=== PATIENT | male | born 1985 | race Hispanic/Latino ===

== ENCOUNTER 2019-01-21 20:57 | Emergency (ER) | payer BC, SELFPAY ==
[2019-01-21 21:48] LABS: Absolute Lymphocytes (CBC) 2.1 K/uL (0.7-4.9); Basophils % 0.5 % (0-1.3); Hematocrit 39.3 % (39.6-49.0); Lymphocytes % 25.5 % (15.3-44.8); MPV 7.2 fL (7.6-11.3); RBC Red Blood Cell Count 4.24 M/uL (4.33-5.43)
[2019-01-21 22:03] LABS: ALT/SGPT 18 U/L (12-78); AST/SGOT 19 U/L (15-37); Albumin 3.6 g/dL (3.4-5.0); Alkaline Phosphatase 49 U/L (45-117); BUN Blood Urea Nitrogen 20 mg/dL (7-18); Bicarbonate 31 mmol/L (21-32); Bilirubin Direct < 0.1 mg/dL (0-0.2); Bilirubin Total 0.2 mg/dL (0.2-1.0); Glucose Level 80 mg/dL (74-106); Lipase 108 U/L (73-393); Magnesium 2.3 mg/dL (1.8-2.4); Potassium 3.9 mmol/L (3.5-5.1); Sodium Level 143 mmol/L (136-145)
[2019-01-21 23:36] LABS: Urine Blood NEGATIVE (NEG); Urine Glucose NEGATIVE (NEG); Urine Protein NEGATIVE (NEG); Urine Specific Gravity 1.025 (1.005-1.030)
[2019-01-21 23:45] LABS: Barbiturates NEGATIVE (NEGATIVE); Benzodiazepines NEGATIVE (NEGATIVE); Cocaine NEGATIVE (NEGATIVE); METHAMPHETAM NEGATIVE (NEGATIVE); Methadone NEGATIVE (NEGATIVE); Opiates NEGATIVE (NEGATIVE); Phencyclidine NEGATIVE (NEGATIVE); THC Cannibis POSITIVE (NEGATIVE)
--- NOTE | 2019-01-22 00:18 | ER ---
Nurse's Notes [facility] Name: Osiel Hill Jr Age: 34 yrs Sex: Male : 1985 Arrival Date: 01/21/2019 Time: 21:04 Bed 28 Private MD: Diagnosis: Epileptic seizures related to external causes, not intractable, without status epilepticus;Cannabis abuse Presentation: 01/21 21:09 Presenting complaint: EMS states: pt reportedly had a seizure this morning at 0700 aa1 while sitting in his car and then had another episode that was witnessed by his mother at approx 2040 this evening. Denies incontinence. Denies hx of seizures. Denies hx of drug use or synthetic marijuana. Upon arrival to ED pt A\T\O x 4 with no complaints. Transition of care: patient was not received from another setting of care. Onset of symptoms was January 21, 2019 at 07:00. Risk Assessment: Do you want to hurt yourself or someone else?. Initial Sepsis Screen: Does the patient meet any 2 criteria? HR > 90 bpm. Does the patient have a suspected source of infection? No. Patient's initial sepsis screen is negative. Care prior to arrival: None. 21:09 Method Of Arrival: EMS: [facility] aa1 21:09 Acuity: DENIS 3 aa1 Triage Assessment: 21:30 General: Appears comfortable. tr5 Historical: - Allergies: 21:13 No Known Allergies; aa1 - Home Meds: 21:13 None [Active]; aa1 - PMHx: 21:13 None; aa1 - PSHx: 21:13 None; aa1 - Immunization history:: Adult Immunizations unknown. - Social history:: Smoking status: Patient/guardian denies using tobacco, Patient uses alcohol, only on a social basis. Patient/guardian denies using street drugs, IV drugs. - Ebola Screening: : No symptoms or risks identified at this time. Screenin:30 Abuse screen: Denies threats or abuse. Nutritional screening: No deficits noted. tr5 Tuberculosis screening: No symptoms or risk factors identified. Fall Risk None identified. Assessment: 21:30 General: Behavior is calm, cooperative. Pain: Denies pain. Neuro: Level of tr5 Consciousness is awake, alert, Oriented to. 22:30 Reassessment: Patient appears in no apparent distress at this time. Patient and/or tr5 family updated on plan of care and expected duration. Pain level reassessed. Patient is alert, oriented x 3, equal unlabored respirations, skin warm/dry/pink. Vital Signs: 21:13 BP 131 / 69; Pulse 99; Resp 14; Temp 98.4; Pulse Ox 98% on R/A; Weight 63.5 kg; Height aa1 5 ft. 7 in. (170.18 cm); Pain 0/10; 01/22 00:00 BP 109 / 67; Pulse 81; Resp 13; Pulse Ox 97% on R/A; tr5 01/21 21:13 Body Mass Index 21.93 (63.50 kg, 170.18 cm) aa1 Katia Coma Score: 01/21 21:13 Eye Response: spontaneous(4). Verbal Response: oriented(5). Motor Response: obeys aa1 commands(6). Total: 15. ED Course: 21:04 Patient arrived in ED. cf2 21:04 Patient has correct armband on for positive identification. Placed in gown. Bed in low aa1 position. Call light in reach. ekg monitor tech on. Pulse ox on. NIBP on. 21:10 Mohan Monahan MD is Attending Physician. tw4 21:12 Triage completed. aa1 21:13 Arm band placed on left wrist. aa1 21:18 Onesimo Murillo, RN is Primary Nurse. tr5 21:30 Seizure precautions initiated. tr5 21:31 CT Head Brain wo Cont In Process Unspecified. EDMS 21:46 Initial lab(s) drawn, by ga, sent to lab. Inserted saline lock: 20 gauge in left tr5 antecubital area, using aseptic technique. 01/22 00:18 Javier Almendarez MD is Referral Physician. tw4 00:25 No provider procedures requiring assistance completed. IV discontinued. tr5 Administered Medications: No medications were administered Outcome: 00:17 Discharge ordered by . tw4 00:25 Discharged to home ambulatory, with family. tr5 00:25 Condition: stable 00:25 Discharge instructions given to patient, family, Instructed on discharge instructions, follow up and referral plans. 00:26 Patient left the ED. tr5 Signatures: Dispatcher [employer] [facility] Lauren Ross RN RN aa1 Mohan Monahan MD MD tw4 Onesimo Murillo, RN RN tr5 Gretchen Kramer 2
--- NOTE | 2019-01-22 00:19 | EDPHYS ---
Physician Documentation [facility] Name: Osiel Hill Jr Age: 34 yrs Sex: Male : 1985 Arrival Date: 01/21/2019 Time: 21:04 Bed 28 Private MD: ED Physician Mohan Monahan HPI: 01/22 06:48 This 34 yrs old Male presents to ER via EMS with complaints of Seizure. tw4 06:48 The patient presents with a history of multiple seizures, a total of 2. Character of tw4 seizure(s): Loss of consciousness: it is not known if the patient experienced loss of consciousness, Motor activity: generalized, Incontinence: none, Apnea: it is not know whether or not the patient experienced apnea, Circulation: it is unknown whether or not the patient experienced a disturbance in pulse, Eye movements: are unknown. Seizure onset: this morning. Context: the seizure(s) was witnessed, by family, mother. Seizure Hx: the patient has no previous seizure history. The patient has not experienced similar symptoms in the past. Historical: - Allergies: 01/21 21:13 No Known Allergies; aa1 - Home Meds: 21:13 None [Active]; aa1 - PMHx: 21:13 None; aa1 - PSHx: 21:13 None; aa1 - Immunization history:: Adult Immunizations unknown. - Social history:: Smoking status: Patient/guardian denies using tobacco, Patient uses alcohol, only on a social basis. Patient/guardian denies using street drugs, IV drugs. - Ebola Screening: : No symptoms or risks identified at this time. ROS: 01/22 06:48 Constitutional: Negative for fever, chills, and weight loss, Eyes: Negative for injury, tw4 pain, redness, and discharge, Cardiovascular: Negative for chest pain, palpitations, and edema, Respiratory: Negative for shortness of breath, cough, wheezing, and pleuritic chest pain, Abdomen/GI: Negative for abdominal pain, nausea, vomiting, diarrhea, and constipation, Back: Negative for injury and pain, MS/Extremity: Negative for injury and deformity, Skin: Negative for injury, rash, and discoloration. Neuro: Positive for seizure activity, Negative for altered mental status, dizziness, gait disturbance, headache, hearing loss, loss of consciousness, numbness, speech changes, syncope, near syncope, tingling, tinnitus, tremor. Exam: 06:48 Constitutional: This is a well developed, well nourished patient who is awake, alert, tw4 and in no acute distress. Head/Face: Normocephalic, atraumatic. Chest/axilla: Normal chest wall appearance and motion. Nontender with no deformity. No lesions are appreciated. Cardiovascular: Regular rate and rhythm with a normal S1 and S2. No gallops, murmurs, or rubs. Normal PMI, no JVD. No pulse deficits. Respiratory: Lungs have equal breath sounds bilaterally, clear to auscultation and percussion. No rales, rhonchi or wheezes noted. No increased work of breathing, no retractions or nasal flaring. Abdomen/GI: Soft, non-tender, with normal bowel sounds. No distension or tympany. No guarding or rebound. No evidence of tenderness throughout. Back: No spinal tenderness. No costovertebral tenderness. Full range of motion. MS/ Extremity: Pulses equal, no cyanosis. Neurovascular intact. Full, normal range of motion. Neuro: Awake and alert, GCS 15, oriented to person, place, time, and situation. Cranial nerves II-XII grossly intact. Motor strength 5/5 in all extremities. Sensory grossly intact. Cerebellar exam normal. Normal gait. Vital Signs: 01/21 21:13 BP 131 / 69; Pulse 99; Resp 14; Temp 98.4; Pulse Ox 98% on R/A; Weight 63.5 kg; Height aa1 5 ft. 7 in. (170.18 cm); Pain 0/10; 01/22 00:00 BP 109 / 67; Pulse 81; Resp 13; Pulse Ox 97% on R/A; tr5 01/21 21:13 Body Mass Index 21.93 (63.50 kg, 170.18 cm) aa1 [place] Coma Score: 01/21 21:13 Eye Response: spontaneous(4). Verbal Response: oriented(5). Motor Response: obeys aa1 commands(6). Total: 15. MDM: 21:10 Patient medically screened. tw4 01/22 06:48 Differential diagnosis: drug overdose, seizure. Data reviewed: vital signs, nurses tw4 notes, lab test result(s), CBC, white blood cell count, hemoglobin, hematocrit, platelets, electrolytes, sodium, potassium, chloride, serum bicarbonate, BUN, creatinine, serum glucose, hepatic panel, urine drug screen, EKG. Data interpreted: night monitor: rhythm is normal sinus rhythm, Pulse oximetry: Interpretation: normal. Counseling: I had a detailed discussion with the patient and/or guardian regarding: the historical points, exam findings, and any diagnostic results supporting the discharge/admit diagnosis, lab results, radiology results. Special discussion: I discussed with the patient/guardian in detail that at this point there is no indication for admission to the hospital. It is understood, however, that if the symptoms persist or worsen the patient needs to return immediately for re-evaluation. 01/21 21:12 Order name: UDS; Complete Time: 23:48 [facility] 01/21 23:48 Interpretation: Normal except: THC POSITIVE. [facility] 01/21 21:12 Order name: Basic Metabolic Panel; Complete Time: 22:55 [facility] 01/21 22:55 Interpretation: Normal except: CL 108; BUN 20. [facility] 01/21 21:12 Order name: CBC with Diff; Complete Time: 22:55 [facility] 01/21 22:55 Interpretation: Normal except: RBC 4.24; HGB 13.2; HCT 39.3; MPV 7.2. [facility] 01/21 21:12 Order name: Hepatic Function; Complete Time: 22:55 [facility] 01/21 22:55 Interpretation: Within normal limits. [facility] 01/21 21:12 Order name: Lipase; Complete Time: 22:55 [facility] 01/21 22:55 Interpretation: Within normal limits: LIP 108. [facility] 01/21 21:12 Order name: Magnesium; Complete Time: 22:55 [facility] 01/21 22:55 Interpretation: Within normal limits: MG 2.3. 01/21 21:12 Order name: CT Head Brain wo Cont [facility] 01/21 21:12 Order name: EKG; Complete Time: 21:13 [facility] 01/21 21:12 Order name: Cardiac monitoring; Complete Time: 22:25 [facility] 01/21 21:12 Order name: EKG - Nurse/Tech; Complete Time: 21:53 [facility] 01/21 21:12 Order name: IV Saline Lock; Complete Time: 21:41 [facility] 01/21 21:12 Order name: Labs collected and sent; Complete Time: 21:42 tw4 01/21 21:12 Order name: NPO; Complete Time: 21:42 tw4 01/21 23:24 Order name: Urine Dipstick--Ancillary (enter results) mw2 01/21 21:12 Order name: O2 Per Protocol; Complete Time: 21:42 tw4 01/21 21:12 Order name: O2 Sat Monitoring; Complete Time: 21:41 tw4 01/21 21:12 Order name: Urine Dipstick-Ancillary (obtain specimen); Complete Time: 23:22 tw4 EC:54 Rate is 86 beats/min. Rhythm is regular. QRS [place] is Normal. [place] interval is normal. QRS tw4 interval is normal. QT interval is normal. Q waves are Present in leads II, III, aVF. Q waves are Old. T waves are Normal. Clinical impression: NSR w/ Non-specific ST/T Changes. Interpreted by me. Reviewed by me. Administered Medications: No medications were administered Disposition: 01/22/19 00:17 Discharged to Home. Impression: Epileptic seizures related to external causes, not intractable, without status epilepticus, Cannabis abuse. - Condition is Stable. - Discharge Instructions: Nonepileptic Seizures, Seizure, Adult. - Prescriptions for Keppra 500 mg Oral Tablet - take 1 tablet by ORAL route every 12 hours; 20 tablet. - Medication Reconciliation Form, Thank You Letter, Antibiotic Education, Prescription Opioid Use form. - Follow up: Private Physician; When: Upon discharge from the Emergency Department; Reason: Recheck today's complaints, Continuance of care. Follow up: Javier Almendarez MD; When: Upon discharge from the Emergency Department; Reason: Recheck today's complaints, Continuance of care. - Problem is new. - Symptoms have improved. Signatures: Dispatcher [employer] Lauren Peterson RN RN aa1 Mohan Monahan MD MD tw4 Onesimo Murilol RN RN tr5 Corrections: (The following items were deleted from the chart) 00:18 00:17 01/22/2019 00:17 Discharged to Home. Impression: Epileptic seizures related to tw4 external causes, not intractable, without status epilepticus; Cannabis abuse. Condition is Stable. Forms are Medication Reconciliation Form, Thank You Letter, Antibiotic Education, Prescription Opioid Use. Follow up: Private Physician; When: Upon discharge from the Emergency Department; Reason: Recheck today's complaints, Continuance of care. Problem is new. Symptoms have improved. tw4 00:26 00:18 01/22/2019 00:17 Discharged to Home. Impression: Epileptic seizures related to tr5 external causes, not intractable, without status epilepticus; Cannabis abuse. Condition is Stable. Discharge Instructions: Nonepileptic Seizures, Seizure, Adult. Forms are Medication Reconciliation Form, Thank You Letter, Antibiotic Education, Prescription Opioid Use. Follow up: Private Physician; When: Upon discharge from the Emergency Department; Reason: Recheck today's complaints, Continuance of care. Follow up: Javier Almendarez; When: Upon discharge from the Emergency Department; Reason: Recheck today's complaints, Continuance of care. Problem is new. Symptoms have improved. tw4
[2019-01-22 01:36] VITALS: TEMP 98.4
[2019-01-22 01:37] VITALS: BP 109/67; O2SAT 97
--- NOTE | 2019-01-22 09:27 | EKG ---
Test Date: 2019-01-21 Test Time: 21:51:52 Administrative Representative: MARINET MEASUREMENT RESULTS: Intervals: Rate: 86 NE: 152 QRSD: 112 QT: 338 QTc: 404 [place]: P: 68 NE: 152 QRS: 5 T: 54 INTERPRETIVE STATEMENTS: Normal sinus rhythm Incomplete right bundle branch block Indeterminate axis Borderline ECG No previous ECG available for comparison Electronically Signed On 01-22-19 09:27:17 CRISIS THERAPIST by Khanh Martinez
--- NOTE | 2019-01-22 11:39 | RAD REPORT ---
EXAM DESCRIPTION: CT - Head Brain Wo Cont - 01/22/2019 3:42 am CLINICAL HISTORY: Seizure. COMPARISON: None. TECHNIQUE: CT scan of the brain without IV contrast. This exam was performed according to our depa rtmental dose-optimization program, which includes automated exposure control, adjustment of the mA a nd/or kV according to patient size and/or use of iterative reconstruction technique. FINDINGS: The ventricles, cisterns, and sulci are age-appropriate. No evidence of acute infarction, intracranial hemorrhage, extra-axial fluid collection, or midline shift. No air-fluid levels are seen in the paranasal sinuses to suggest acute sinusitis. No depressed skull fracture. IMPRESSION: No acute intracranial findings. Electronically signed by: Javier Cook MD 01/21/2019 9:53 PM BICYCLE FITTER Due to temporary technical issues with the PACS/Fluency reporting system, reports are being signed by the in house radiologist as a courtesy to ensure prompt reporting. The interpreting radiologist is f ully responsible for the content of the report.
== END 2019-01-22 00:26 | disposition home or self-care (01) ==
LOC: ER 20:57
DX: F12.10 Cannabis abuse, uncomplicated (principal)
CPT/HCPCS: 36415; 70450; 80048; 80076; 80307; 81003; 83690; 83735; 85025; 93005; 99284

== ENCOUNTER 2020-03-03 09:55 | Emergency (ER) | payer SELFPAY ==
[2020-03-03 10:31] LABS: Absolute Lymphocytes (CBC) 1.7 K/uL (0.7-4.9); Basophils % 0.3 % (0-1.3); Hematocrit 35.8 % (39.6-49.0); Lymphocytes % 14.6 % (15.3-44.8); MPV 7.8 fL (7.6-11.3); RBC Red Blood Cell Count 3.96 M/uL (4.33-5.43)
[2020-03-03 10:54] LABS: ALT/SGPT 31 U/L (12-78); AST/SGOT 26 U/L (15-37); Albumin 3.5 g/dL (3.4-5.0); Alkaline Phosphatase 64 U/L (45-117); BUN Blood Urea Nitrogen 18 mg/dL (7-18); Bicarbonate 30 mmol/L (21-32); Bilirubin Direct < 0.1 mg/dL (0-0.2); Bilirubin Total 0.2 mg/dL (0.2-1.0); Creatine Phosphokinase 922 U/L (39-308); Glucose Level 130 mg/dL (74-106); Protein, Total 6.7 g/dL (6.4-8.2); Sodium Level 141 mmol/L (136-145)
[2020-03-03] MEDS ORDERED: NA CHLORIDE 0.9% 1,000 ML ONE (12:10)
--- NOTE | 2020-03-03 12:37 | ER ---
Nurse's Notes [facility] Name: Osiel Hill Jr Age: 35 yrs Sex: Male : 1985 Arrival Date: 03/03/2020 Time: 09:56 Bed 16 Private MD: Diagnosis: Exposure to excessive natural cold;Hypothermia;Dehydration Presentation: 03/03 09:56 Chief complaint: EMS states: found unresponsive outside of apartment complex in [address] EMS reports pt was A\\T\\O x 0 upon their arrival. Pt currently is drowsy but A\\T\\O x 4, pt not willing to speak about incident, pt just states "I took a pill". Pt's jeans noted to be wet, pt refuses to get into gown and take off wet clothes. Coronavirus screen: Client denies travel out of the [place] in the last 14 days. At this time, the client does not indicate any symptoms associated with coronavirus-19. Ebola Screen: Patient negative for fever greater than or equal to 101.5 degrees Fahrenheit, and additional compatible Ebola Virus Disease symptoms. Initial Sepsis Screen: Does the patient meet any 2 criteria? Temp <36.0*C (96.8*F)) or > 38.3*C (100.9*F). HR > 90 bpm. Yes Does the patient have a suspected source of infection? No. Patient's initial sepsis screen is negative. Risk Assessment: Do you want to hurt yourself or someone else? Patient reports no desire to harm self or others. Onset of symptoms was March 03, 2020. 09:56 Acuity: DENIS 3 aa5 09:56 Method Of Arrival: EMS: [facility] aa5 09:56 Care prior to arrival: IV initiated. 18 GA, in the left antecubital area, Glucose aa5 check: 88 Oxygen administered. via nasal cannula. Historical: - Allergies: 10:00 No Known Allergies; aa5 - PMHx: 10:00 None; aa5 - PSHx: 10:00 None; aa5 - Immunization history:: Adult Immunizations unknown. - Social history:: Smoking status: unknown. Screenin:14 Abuse screen: Denies threats or abuse. Nutritional screening: No deficits noted. aa5 Tuberculosis screening: No symptoms or risk factors identified. Fall Risk IV access (20 points). Total Childs Fall Scale indicates No Risk (0-24 pts). Assessment: 10:00 General: Appears comfortable, Behavior is calm, cooperative, drowsy. Pain: Denies pain. aa5 Neuro: Level of Consciousness is alert, obeys commands, drowsy and sleepy . Oriented to person, place, time, situation, Appropriate for age Pupils are PERRLA, dilated. Cardiovascular: Heart tones S1 S2 present Rhythm is regular. Respiratory: Airway is patent Respiratory effort is even, unlabored, Respiratory pattern is regular, symmetrical. GI: Abdomen is flat, non-distended, Bowel sounds present X 4 quads. Abd is soft and non tender X 4 quads. : No signs and/or symptoms were reported regarding the genitourinary system. EENT: No signs and/or symptoms were reported regarding the EENT system. Derm: Skin is pink, warm \\T\\ dry. Musculoskeletal: Range of motion: intact in all extremities. 10:00 Reassessment: Nacho hugger blanket placed on low setting per PA. aa5 11:30 Reassessment: Pt resting in bed with eyes closed, respirations even and unlabored, skin aa5 is pink/warm/dry. . 12:15 Reassessment: Patient is alert, oriented x 3, equal unlabored respirations, skin aa5 warm/dry/pink. Patient denies pain at this time. 13:15 Reassessment: Patient is alert, oriented x 3, equal unlabored respirations, skin aa5 warm/dry/pink. Vital Signs: 09:56 BP 124 / 73; Pulse 106; Resp 18 S; Temp 96.1(A); Pulse Ox 99% on R/A; Pain 0/10; aa5 11:30 BP 107 / 54; Pulse 117; Resp 16 S; Temp 98.5(O); Pulse Ox 97% on R/A; aa5 12:30 BP 110 / 67; Pulse 95; Resp 18 S; Temp 98.2(O); Pulse Ox 100% on R/A; Pain 0/10; aa5 ED Course: 09:56 Patient arrived in ED. aa5 09:56 Arm band placed on Patient placed in an exam room, on a stretcher. aa5 09:56 Patient has correct armband on for positive identification. Bed in low position. Call aa5 light in reach. Side rails up X2. Pulse ox on. NIBP on. 09:58 Gregor Luo PA is PHCP. jr8 09:58 Charly Altamirano MD is Attending Physician. jr8 09:59 Triage completed. aa5 10:00 Kelsea Robins RN is Primary Nurse. aa5 10:20 Initial lab(s) drawn, by al, sent to lab. Maintain EMS IV. Dressing intact. Good blood aa5 return noted. Site clean \\T\\ dry. Gauge \\T\\ site: 18G L AC. 13:15 No provider procedures requiring assistance completed. IV discontinued, intact, aa5 bleeding controlled, No redness/swelling at site. Pressure dressing applied. Administered Medications: 11:57 Drug: NS 0.9% 1000 ml Route: IV; Rate: 1000 ml; Site: left antecubital; aa5 13:15 Follow up: IV Status: Completed infusion; IV Intake: 1000ml aa5 Intake: 13:15 IV: 1000ml; Total: 1000ml. aa5 Outcome: 12:36 Discharge ordered by . jr8 13:15 Discharged to home ambulatory. aa5 13:15 Condition: good 13:15 Discharge instructions given to patient, Instructed on discharge instructions, follow up and referral plans. Demonstrated understanding of instructions, follow-up care. 13:17 Patient left the ED. aa5 Signatures: Kelsea Robins RN RN aa5 Gregor Luo PA PA jr8 Corrections: (The following items were deleted from the chart) 10:01 09:56 Care prior to arrival: Glucose check: 88 Oxygen administered. via nasal cannula, aa5 aa5 10:13 09:56 Initial Sepsis Screen: Does the patient meet any 2 criteria? No. Patient's aa5 initial sepsis screen is negative. Does the patient have a suspected source of infection? No. Patient's initial sepsis screen is negative. aa5
--- NOTE | 2020-03-03 12:37 | EDPHYS ---
Physician Documentation [facility] Name: Osiel Hill Jr Age: 35 yrs Sex: Male : 1985 Arrival Date: 03/03/2020 Time: 09:56 Bed 16 Private MD: ED Physician Charly Altamirano HPI: 03/03 12:23 This 35 yrs old Male presents to ER via EMS with complaints of Altered Mental jr8 Status. 12:23 Patient stated that he was picked up outside of his girlfriends apartment. EMS stated jr8 that he was initially altered. Patient stated that he was outside trying to relax and fell asleep. Patient hypothermic upon arrival. Stated that he took a pill to relax yesterday but could not give us the name. Patient currently A\T\O x 4. Severity of symptoms: At their worst the symptoms were moderate. The patient has not experienced similar symptoms in the past. The patient has not recently seen a physician. Historical: - Allergies: 10:00 No Known Allergies; aa5 - PMHx: 10:00 None; aa5 - PSHx: 10:00 None; aa5 - Immunization history:: Adult Immunizations unknown. - Social history:: Smoking status: unknown. ROS: 12:23 Eyes: Negative for injury, pain, redness, and discharge, ENT: Negative for injury, jr8 pain, and discharge, Neck: Negative for injury, pain, and swelling, Cardiovascular: Negative for chest pain, palpitations, and edema, Respiratory: Negative for shortness of breath, cough, wheezing, and pleuritic chest pain, Abdomen/GI: Negative for abdominal pain, nausea, vomiting, diarrhea, and constipation, Back: Negative for injury and pain, MS/Extremity: Negative for injury and deformity, Skin: Negative for injury, rash, and discoloration. 12:23 Neuro: Positive for altered mental status. Exam: 12:23 Eyes: Pupils equal round and reactive to light, extra-ocular motions intact. Lids and jr8 lashes normal. Conjunctiva and sclera are non-icteric and not injected. Cornea within normal limits. Periorbital areas with no swelling, redness, or edema. ENT: Nares patent. No nasal discharge, no septal abnormalities noted. Tympanic membranes are normal and external auditory canals are clear. Oropharynx with no redness, swelling, or masses, exudates, or evidence of obstruction, uvula midline. Mucous membranes moist. Neck: Trachea midline, no thyromegaly or masses palpated, and no cervical lymphadenopathy. Supple, full range of motion without nuchal rigidity, or vertebral point tenderness. No Meningismus. Cardiovascular: Tachycardic with a normal S1 and S2. No gallops, murmurs, or rubs. Normal PMI, no JVD. No pulse deficits. Respiratory: Lungs have equal breath sounds bilaterally, clear to auscultation and percussion. No rales, rhonchi or wheezes noted. No increased work of breathing, no retractions or nasal flaring. Abdomen/GI: Soft, non-tender, with normal bowel sounds. No distension or tympany. No guarding or rebound. No evidence of tenderness throughout. Back: No spinal tenderness. No costovertebral tenderness. Full range of motion. Skin: Warm, dry with normal turgor. Normal color with no rashes, no lesions, and no evidence of cellulitis. MS/ Extremity: Pulses equal, no cyanosis. Neurovascular intact. Full, normal range of motion. Neuro: Awake and alert, GCS 15, oriented to person, place, time, and situation. Cranial nerves II-XII grossly intact. Motor strength 5/5 in all extremities. Sensory grossly intact. Vital Signs: 09:56 BP 124 / 73; Pulse 106; Resp 18 S; Temp 96.1(A); Pulse Ox 99% on R/A; Pain 0/10; aa5 11:30 BP 107 / 54; Pulse 117; Resp 16 S; Temp 98.5(O); Pulse Ox 97% on R/A; aa5 12:30 BP 110 / 67; Pulse 95; Resp 18 S; Temp 98.2(O); Pulse Ox 100% on R/A; Pain 0/10; aa5 MDM: 10:01 Patient medically screened. [facility] 12:35 Data reviewed: vital signs, nurses notes, lab test result(s), and as a result, I will jr8 discharge patient. Data interpreted: Pulse oximetry: on room air is 97 %. Interpretation: normal. Counseling: I had a detailed discussion with the patient and/or guardian regarding: the historical points, exam findings, and any diagnostic results supporting the discharge/admit diagnosis, lab results, the need for outpatient follow up, a family practitioner, to return to the emergency department if symptoms worsen or persist or if there are any questions or concerns that arise at home. Response to treatment: the patient's symptoms have markedly improved after treatment. 03/03 10:14 Order name: CBC with Diff 8 03/03 10:14 Order name: Basic Metabolic Panel 8 03/03 10:14 Order name: CK jr 03/03 10:15 Order name: Acetaminophen; Complete Time: 11:49 jr8 03/03 10:15 Order name: ETOH Level; Complete Time: 10:58 jr8 03/03 10:15 Order name: Hepatic Function; Complete Time: 11:49 jr8 03/03 10:15 Order name: Salicylate; Complete Time: 11:49 8 03/03 10:15 Order name: CBC with Automated Diff; Complete Time: 10:51 EDMS 03/03 10:15 Order name: Basic Metabolic Panel; Complete Time: 11:49 EDMS 03/03 10:15 Order name: Creatine Phosphokinase; Complete Time: 11:49 EDMS Administered Medications: 11:57 Drug: NS 0.9% 1000 ml Route: IV; Rate: 1000 ml; Site: left antecubital; aa5 13:15 Follow up: IV Status: Completed infusion; IV Intake: 1000ml aa5 Disposition: 15:58 Co-signature as Attending Physician, Charly Altamirano MD I agree with the assessment and kdr plan of care. Disposition: 03/03/20 12:36 Discharged to Home. Impression: Exposure to excessive natural cold, Hypothermia, Dehydration. - Condition is Stable. - Discharge Instructions: Dehydration, Adult, Hypothermia. - Medication Reconciliation Form, Thank You Letter, Antibiotic Education, Prescription Opioid Use form. - Follow up: Private Physician; When: 2 - 3 days; Reason: Recheck today's complaints, Continuance of care, Re-evaluation by your physician. - Problem is new. - Symptoms have improved. Signatures: Dispatcher [employer] Charly Agosto MD MD kdr Calderon, Audri, RN RN aa5 Gregor Luo PA PA jr8 Corrections: (The following items were deleted from the chart) 13:17 10:14 Urine Dipstick-Ancillary ordered. 8 aa5 13:17 12:36 03/03/2020 12:36 Discharged to Home. Impression: Exposure to excessive natural aa5 cold; Hypothermia; Dehydration. Condition is Stable. Forms are Medication Reconciliation Form, Thank You Letter, Antibiotic Education, Prescription Opioid Use. Follow up: Private Physician; When: 2 - 3 days; Reason: Recheck today's complaints, Continuance of care, Re-evaluation by your physician. Problem is new. Symptoms have improved. jr8
== END 2020-03-03 13:17 | disposition home or self-care (01) ==
LOC: ER 09:55
DX: T68.XXXA Hypothermia, initial encounter (principal); E86.0 Dehydration; X31.XXXA Exposure to excessive natural cold, initial encounter
CPT/HCPCS: 36415; 80048; 80076; 80320; 80329; 82550; 85025; 96360; 99284; J7030